=== PATIENT | female | born 1985 | race Caucasian/White ===

== ENCOUNTER 2018-01-11 18:07 | Emergency (ER) | END 2018-01-11 23:30 | disposition home or self-care (01) ==

== ENCOUNTER 2019-09-04 03:09 | Emergency (ER) | payer OTHER ==
[~2019-09-04] VITALS: Ht 165.1 cm; Wt 82.5 kg
[~2019-09-04 03:09] MED LIST: NAPR-985 PO
[2019-09-04 03:12] VITALS: Ht 165.1 cm; Wt 82.5 kg
[2019-09-04] MEDS ORDERED: NAPROXEN 500 MG TAB PO ONE (05:30)
[2019-09-04 05:56] VITALS: BP 133/91; PULSE 75; RESP 20
== END 2019-09-04 05:57 | disposition home or self-care (01) ==
LOC: FTE 03:09
DX: K08.89 Other specified disorders of teeth and supporting structures (principal)
CPT/HCPCS: Z7502; Z7610; 99282